=== PATIENT | male | born 1990 | race Caucasian/White ===

== ENCOUNTER 2022-08-14 17:13 | Emergency (ER) | payer OTHER, SELFPAY ==
[2022-08-14 17:24] VITALS: BP 170/40; PULSE 94; RESP 18; TEMP 35.6; O2SAT 98; BMI 40.2
--- NOTE | 2022-08-14 18:01 | ED.GENADULT ---
HPI - General Adult General Chief complaint: Laceration/Wound Stated complaint: Deep cut Left forearm Time Seen by Provider: 08/14/22 17:15 Source: patient and family Mode of arrival: ambulatory Limitations: no limitations History of Present Illness HPI narrative: 32-year-old male with notable history of hypertension presents to the emergency department after suffering a laceration to his left dorsal forearm area. Patient makes hunting knives as a hobby. He was working on a clean piece of metal that he was fashioning into a new knife when the knife slipped off of the vice, causing a laceration to his arm. He noticed that the wound was fairly wide and deep. He was able to apply pressure but the bleeding did not entirely stop. He does feel little lightheaded but admits that he handles the site of blood and needles poorly. Laceration was less than an hour ago. No injury to any other area. He does not take any anticoagulants. He has no difficulty moving the wrist, hand or fingers. Has not taken any medications to help with his symptoms. No recent illness or fever. No wound contamination. Last tetanus shot April of 2013, appropriately up-to-date, has had multiple tetanus shots in the past Past medical history notable for a foot surgery following a fracture, no complications. Also hypertension managed on lisinopril which is is only home medication. He has no medication or drug allergies. Socially no intoxication or pertinent travel. ROS notable for no other generalized, skin, musculoskeletal, neurological changes. Related Data Home Medications Medication Instructions Recorded Confirmed lisinopril 10 mg tablet 10 mg PO DAILY 08/14/22 08/14/22 Allergies Allergy/AdvReac Type Severity Reaction Status Date / Time cats Allergy Mild sniffles Uncoded 08/14/22 17:28 deer Allergy Mild hives Uncoded 08/14/22 17:28 [facility] Medical History (Updated 08/14/22 @ 18:03 by Mckenna Maria MD) Hypertension Exam Const: Vital Signs, click to edit/add: Vital Signs - 24 hr 08/14/22 17:24 Temperature 96.1 F L Pulse Rate [Right Femoral] 94 Respiratory Rate 18 Blood Pressure [Ri ght Forearm] 170/40 H Pulse Oximetry 98 Oxygen Delivery Me thod Room Air Documenting provider has reviewed patient's vital signs: yes Common normals: no apparent distress General appearance: cooperative, comfortable and well kempt HENMT: Common normals: normocephalic and head/scalp atraumatic Head and scalp: normocephalic and atraumatic Mouth: oral and palatal mucosa normal Eye: Common normals: conjunctivae normal General eye: normal appearance of both eyes Conjunctiva: conjunctiva(e) normal Resp: Common normals: normal respiratory effort, no use of accessory muscles and clear to auscultation bilaterally Effort & inspection: able to speak in complete sentences Auscultation: clear to auscultation bilaterally Cardio: Common normals: regular rate, regular rhythm, S1 normal heart sound, S2 normal heart sound and no murmurs Rate: regular rate Rhythm: regular rhythm Heart sounds: S1 normal and S2 normal Extremity: Other: Right hand moves normally. Left hand with no movement deficits. Normal range of motion in left elbow and left wrist. Laceration, diagonal, depth to the subcutaneous fat but not the muscular layer, 5 cm in length, gapes 1.5 cm in within the central portion. Mild oozing of bleeding. No pulsatile bleeding. Wound is explored with no signs of foreign body. Irrigated by nurse prior to my arrival. Neuro: Speech: speech normal Motor exam: no movement abnormalities noted Psych: Appearance: well kempt Attitude: engaged Mood and affect: euthymic mood Insight: insight good Judgement: judgment good Skin: Narrative: 5 x 1.5 cm laceration as described above to left dorsal forearm, no other rashes, areas of injury appreciated. Course Vital Signs Vital signs: Initial Vital Signs Temperature 96.1 F L 08/14/22 17:24 Temperature Source Temporal Artery Scan 08/14/22 17:24 Pulse Rate 94 08/14/22 17:24 Respiratory Rate 18 08/14/22 17:24 Blood Pressure 170/40 H 08/14/22 17:24 Blood Pressure Mean 83 08/14/22 17:24 Blood Pressure Position Sitting 08/14/22 17:24 Pulse Oximetry 98 08/14/22 17:24 Oxygen Delivery Method 08/14/22 17:24 Vital Signs Temperature 96.1 F L 08/14/22 17:24 Pulse Rate 94 08/14/22 17:24 Respiratory Rate 18 08/14/22 17:24 Blood Pressure 170/40 H 08/14/22 17:24 Pulse Oximetry 98 08/14/22 17:24 Oxygen Delivery Method 08/14/22 17:24 Temperature 96.1 F L 08/14/22 17:24 Pulse Rate 94 08/14/22 17:24 Respiratory Rate 18 08/14/22 17:24 Blood Pressure 170/40 H 08/14/22 17:24 Pulse Oximetry 98 08/14/22 17:24 Oxygen Delivery Method 08/14/22 17:24 Medical Decision Making MDM Narrative Medical decision making narrative: Wound examined as above, no foreign body. Recommended suture closure. Verbal consent obtained. Procedure: Laceration repair. Wound was injected with 4 mL of 2% lidocaine without epinephrine with good anesthesia. It was then and cleansed with Betadine swabs x3. Under sterile conditions, 6 simple interrupted 4-0 nylon sutures were placed with excellent closure, hemostasis. Normal range of motion and pet care technician strength in hand following procedure. Covered in antibiotic ointment and Band-Aid, instructed on wound care. Tetanus confirmed up-to-date. Will need appointment for suture removal in 7-10 days. Alarm symptoms reviewed. No antibiotics necessary. Discharge Plan Discharge Clinical Impression: Laceration Patient Disposition: Home w/ Parent or Adult Condition: Improved Instructions: Laceration (ED) Additional Instructions: Thankfully, there is does not appear to be any injury to the tendons, nerves or blood vessels in your arm. The wound looks very clean. Your likely to have additional swelling and bruising for the next few days. Six sutures were placed. These will need to be taken out in 7-10 days. Please make a follow-up appointment in the clinic to have these removed. Leave the dressing on until tomorrow afternoon if possible. Remove it once daily, cover with antibiotic ointment and a large Band-Aid or 2. Some mild surrounding bruising and redness can be normal. Lots of surrounding redness, severe pain and or pus drainage would not be expected. Please call your primary care provider if these occur. It is okay to take Tylenol and/or ibuprofen for pain. Activity Level: Activity as Tolerated Discharge Diet: Regular Prescriptions: No Action lisinopril 10 mg tablet 10 mg PO DAILY Stand Alone Forms: [employer] Info Instructions
== END 2022-08-14 18:26 | disposition home or self-care (01) ==
PROVIDERS: Emergency Provider Family Medicine; PCP Student in an Organized Health Care Education/Training Program
DX: S51.812A Laceration without foreign body of left forearm, initial encounter (principal); W26.8XXA Contact with other sharp object(s), not elsewhere classified, initial encounter
CPT/HCPCS: 12002; 99282; 99283